=== PATIENT | male | born 1985 | race Hispanic/Latino ===

== ENCOUNTER 2019-08-06 20:37 | Emergency (ER) | payer BC ==
[2019-08-06 21:12] LABS: Absolute Lymphocytes (CBC) 2.6 K/uL (0.7-4.9); Basophils % 0.5 % (0-1.3); Lymphocytes % 27.3 % (15.3-44.8); MPV 7.9 fL (7.6-11.3); RBC Red Blood Cell Count 5.57 M/uL (4.33-5.43)
[2019-08-06 21:37] LABS: ALT/SGPT 57 U/L (12-78); AST/SGOT 30 U/L (15-37); Albumin 4.2 g/dL (3.4-5.0); Alkaline Phosphatase 72 U/L (45-117); BUN Blood Urea Nitrogen 22 mg/dL (7-18); Bicarbonate 26 mmol/L (21-32); Bilirubin Direct 0.1 mg/dL (0-0.2); Bilirubin Total 0.6 mg/dL (0.2-1.0); Glucose Level 105 mg/dL (74-106); Magnesium 1.9 mg/dL (1.8-2.4); Potassium 3.6 mmol/L (3.5-5.1); Sodium Level 141 mmol/L (136-145); Troponin (Emerg Dept Use Only) < 0.02 ng/mL (0.0-0.045)
--- NOTE | 2019-08-06 21:55 | EDPHYS ---
Physician Documentation [facility] Name: Teto Elizalde Jr Age: 33 yrs Sex: Male : 1985 Arrival Date: 08/06/2019 Time: 20:38 Bed 27 Private MD: ED Physician Stan Davis HPI: 08/06 20:50 This 33 yrs old Male presents to ER via Unassigned with complaints of Anxiety, steven Dehydration. 20:50 The patient presents with a history of heart racing. Context: The symptoms occur at steven rest. Onset: The symptoms/episode began/occurred just prior to arrival. Duration: The patient or guardian reports a single episode, that is still ongoing. Modifying factors: The symptoms are aggravated by anxiety, The symptoms are alleviated by remaining still, rest. took fat burner pill at 4 pm. Associated signs and symptoms: Pertinent positives: anxiety, lightheadedness, nausea. Severity of symptoms: At their worst the symptoms were mild in the emergency department the symptoms are unchanged. Historical: - Allergies: 20:55 No Known Allergies; iw - Home Meds: 20:55 None [Active]; iw - PMHx: 20:55 None; iw - Immunization history:: Adult Immunizations. - Coronavirus screen:: The patient has NOT traveled to [place], [place], or [place] in the past 14 days. The patient has NOT had contact with known/suspected case of Coronavirus?. - Family history:: not pertinent. - Social history:: Smoking status: Patient denies any tobacco usage or history of. - Ebola Screening: : Patient negative for fever greater than or equal to 101.5 degrees Fahrenheit, and additional compatible Ebola Virus Disease symptoms Patient denies exposure to infectious person Patient denies travel to an Ebola-affected area in the 21 days before illness onset No symptoms or risks identified at this time. ROS: 20:50 Constitutional: Negative for fever, chills, and weight loss, Eyes: Negative for injury, steven pain, redness, and discharge, ENT: Negative for injury, pain, and discharge, Neck: Negative for injury, pain, and swelling, Cardiovascular: Negative for chest pain, palpitations, and edema, Respiratory: Negative for shortness of breath, cough, wheezing, and pleuritic chest pain, Abdomen/GI: Negative for abdominal pain, nausea, vomiting, diarrhea, and constipation, Back: Negative for injury and pain, : Negative for injury, bleeding, discharge, and swelling, MS/Extremity: Negative for injury and deformity, Skin: Negative for injury, rash, and discoloration, Neuro: Negative for headache, weakness, numbness, tingling, and seizure, Allergy/Immunology: Negative for hives, rash, and allergies, Endocrine: Negative for neck swelling, polydipsia, polyuria, polyphagia, and marked weight changes, Hematologic/Lymphatic: Negative for swollen nodes, abnormal bleeding, and unusual bruising. 20:50 Psych: Positive for anxiety. Exam: 20:50 Constitutional: This is a well developed, well nourished patient who is awake, alert, steven and in no acute distress. Head/Face: Normocephalic, atraumatic. Eyes: Pupils equal round and reactive to light, extra-ocular motions intact. Lids and lashes normal. Conjunctiva and sclera are non-icteric and not injected. Cornea within normal limits. Periorbital areas with no swelling, redness, or edema. ENT: Nares patent. No nasal discharge, no septal abnormalities noted. Tympanic membranes are normal and external auditory canals are clear. Oropharynx with no redness, swelling, or masses, exudates, or evidence of obstruction, uvula midline. Mucous membranes moist. Neck: Trachea midline, no thyromegaly or masses palpated, and no cervical lymphadenopathy. Supple, full range of motion without nuchal rigidity, or vertebral point tenderness. No Meningismus. Chest/axilla: Normal chest wall appearance and motion. Nontender with no deformity. No lesions are appreciated. Cardiovascular: Regular rate and rhythm with a normal S1 and S2. No gallops, murmurs, or rubs. Normal PMI, no JVD. No pulse deficits. Respiratory: Lungs have equal breath sounds bilaterally, clear to auscultation and percussion. No rales, rhonchi or wheezes noted. No increased work of breathing, no retractions or nasal flaring. Abdomen/GI: Soft, non-tender, with normal bowel sounds. No distension or tympany. No guarding or rebound. No evidence of tenderness throughout. Back: No spinal tenderness. No costovertebral tenderness. Full range of motion. Male : Normal genitalia with no discharge or lesions. Skin: Warm, dry with normal turgor. Normal color with no rashes, no lesions, and no evidence of cellulitis. MS/ Extremity: Pulses equal, no cyanosis. Neurovascular intact. Full, normal range of motion. Neuro: Awake and alert, GCS 15, oriented to person, place, time, and situation. Cranial nerves II-XII grossly intact. Motor strength 5/5 in all extremities. Sensory grossly intact. Cerebellar exam normal. Normal gait. 20:50 Psych: Behavior/mood is anxious, Affect is calm, Oriented to person, place, time, Patient has no thoughts/intents to harm self or others. Judgement / Insight is normal. Vital Signs: 20:53 BP 126 / 82; Pulse 82; Resp 16; Temp 98.0; Pulse Ox 99% on R/A; iw 22:46 BP 122 / 78; Pulse 87; Resp 14; Temp 98.4; Pulse Ox 99% on R/A; Pain 0/10; ls4 MDM: 20:50 Data reviewed: vital signs, nurses notes, lab test result(s), EKG, radiologic studies, [facility] CT scan, plain films. 20:56 Patient medically screened. 08/06 20:47 Order name: Basic Metabolic Panel; Complete Time: 21:53 08/06 20:47 Order name: CBC with Diff; Complete Time: 21:53 08/06 20:47 Order name: LFT's; Complete Time: 21:53 08/06 20:47 Order name: Magnesium; Complete Time: 21:53 08/06 20:47 Order name: Troponin (emerg Dept Use Only); Complete Time: 21:53 08/06 20:47 Order name: UDS 08/06 20:47 Order name: XRAY Chest (1 view) 08/06 20:47 Order name: EKG; Complete Time: 20:48 08/06 20:47 Order name: Cardiac monitoring; Complete Time: 22:42 08/06 20:47 Order name: EKG - Nurse/Tech; Complete Time: 22:42 08/06 20:47 Order name: Asprin; Complete Time: 21:53 08/06 20:47 Order name: Tylenol Level; Complete Time: 21:53 08/06 20:47 Order name: Alcohol Level; Complete Time: 21:53 08/06 20:47 Order name: IV Saline Lock; Complete Time: 22:42 [facility] 08/06 20:47 Order name: Labs collected and sent; Complete Time: 22:42 [facility] 08/06 20:47 Order name: O2 Per Protocol; Complete Time: 22:42 [facility] 08/06 20:47 Order name: O2 Sat Monitoring; Complete Time: 22:42 [facility] 08/06 20:48 Order name: Urine Dipstick-Ancillary (obtain specimen); Complete Time: 22:15 [facility] Administered Medications: 20:48 Drug: NS 0.9% 1000 ml Route: IV; Rate: 1 bolus; Site: left antecubital; ls4 21:48 Follow up: IV Status: Completed infusion; IV Intake: 1000ml ls4 Disposition: 08/06/19 21:54 Discharged to Home. Impression: Anxiety disorder, unspecified, Palpitations. - Condition is Stable. - Discharge Instructions: Panic Attacks, Palpitations, Panic Attacks, [id number], Palpitations, [id number]. - Prescriptions for Benadryl 25 mg Oral Capsule - take 1 capsule by ORAL route every 6 hours As needed; 30 tablet. - Medication Reconciliation Form, Thank You Letter, Antibiotic Education, Prescription Opioid Use form. - Follow up: Private Physician; When: 2 - 3 days; Reason: Recheck today's complaints, Continuance of care, Re-evaluation by your physician. - Problem is new. - Symptoms have improved. Signatures: Dispatcher [employer] EDMS Stan Davis MD MD cha Williams, Irene, RN RN Milla Bustillos RN RN ls4 Corrections: (The following items were deleted from the chart) 22:41 21:54 08/06/2019 21:54 Discharged to Home. Impression: Anxiety disorder, unspecified; ls4 Palpitations. Condition is Stable. Discharge Instructions: Panic Attacks, Panic Attacks, [id number]. Prescriptions for Benadryl 25 mg Oral Capsule - take 1 capsule by ORAL route every 6 hours As needed; 30 tablet. and Forms are Medication Reconciliation Form, Thank You Letter, Antibiotic Education, Prescription Opioid Use. Follow up: Private Physician; When: 2 - 3 days; Reason: Recheck today's complaints, Continuance of care, Re-evaluation by your physician. Problem is new. Symptoms have improved. [facility]
--- NOTE | 2019-08-06 21:55 | ER ---
Nurse's Notes [facility] Name: Teto Elizalde Jr Age: 33 yrs Sex: Male : 1985 Arrival Date: 08/06/2019 Time: 20:38 Bed 27 Private MD: Diagnosis: Anxiety disorder, unspecified;Palpitations Presentation: 08/06 20:53 Presenting complaint: EMS states: pt was at work, started to feel shaky, anxious, has iw been taking hydroxycut pills for weigh loss and thinks it made him shaky, also has hx of anxiety. Transition of care: patient was not received from another setting of care. Onset of symptoms was August 06, 2019. Risk Assessment: Do you want to hurt yourself or someone else? Patient reports no desire to harm self or others. Initial Sepsis Screen: Does the patient meet any 2 criteria? No. Patient's initial sepsis screen is negative. Does the patient have a suspected source of infection? No. Patient's initial sepsis screen is negative. Care prior to arrival: Medication(s) given: Normal saline infusion, 500 mL, IV initiated. 18 GA, in the left antecubital area, Glucose check: 82. 20:53 Method Of Arrival: EMS: [facility] iw 20:53 Acuity: ADITYA 3 iw Triage Assessment: 21:00 General: Appears in no apparent distress. uncomfortable, Behavior is anxious. ls4 21:00 Pain: Denies pain. ls4 Historical: - Allergies: 20:55 No Known Allergies; iw - Home Meds: 20:55 None [Active]; iw - PMHx: 20:55 None; iw - Immunization history:: Adult Immunizations. - Coronavirus screen:: The patient has NOT traveled to [place], [place], or [place] in the past 14 days. The patient has NOT had contact with known/suspected case of Coronavirus?. - Family history:: not pertinent. - Social history:: Smoking status: Patient denies any tobacco usage or history of. - Ebola Screening: : Patient negative for fever greater than or equal to 101.5 degrees Fahrenheit, and additional compatible Ebola Virus Disease symptoms Patient denies exposure to infectious person Patient denies travel to an Ebola-affected area in the 21 days before illness onset No symptoms or risks identified at this time. Screenin:00 Abuse screen: Denies threats or abuse. Denies injuries from another. ls4 21:00 Nutritional screening: No deficits noted. Tuberculosis screening: No symptoms or risk ls4 factors identified. Fall Risk None identified. Assessment: 21:10 General: SEE TRIAGE ASSESSMENT . ls4 22:47 Reassessment: Patient appears in no apparent distress at this time. Patient and/or ls4 family updated on plan of care and expected duration. Pain level reassessed. Patient is alert, oriented x 3, equal unlabored respirations, skin warm/dry/pink. Patient states feeling better. Vital Signs: 20:53 BP 126 / 82; Pulse 82; Resp 16; Temp 98.0; Pulse Ox 99% on R/A; iw 22:46 BP 122 / 78; Pulse 87; Resp 14; Temp 98.4; Pulse Ox 99% on R/A; Pain 0/10; ls4 ED Course: 20:38 Patient arrived in ED. ds1 20:46 Stan Davis MD is Attending Physician. steven 20:54 Triage completed. iw 20:55 Arm band placed on. iw 21:00 Patient has correct armband on for positive identification. Placed in gown. Bed in low ls4 position. Call light in reach. Side rails up X2. court monitor on. Pulse ox on. NIBP on. 21:00 No provider procedures requiring assistance completed. Maintain EMS IV. Dressing ls4 intact. Good blood return noted. Site clean \T\ dry. Gauge \T\ site: 20 LAC. 21:01 XRAY Chest (1 view) In Process Unspecified. EDMS 21:58 Milla Bustillos, RN is Primary Nurse. ls4 22:46 IV discontinued, intact, bleeding controlled, No redness/swelling at site. Pressure ls4 dressing applied. Administered Medications: 20:48 Drug: NS 0.9% 1000 ml Route: IV; Rate: 1 bolus; Site: left antecubital; ls4 21:48 Follow up: IV Status: Completed infusion; IV Intake: 1000ml ls4 Intake: 21:48 IV: 1000ml; Total: 1000ml. ls4 Outcome: 21:54 Discharge ordered by . steven 22:41 Patient left the ED. ls4 22:46 Discharged to home ambulatory, with family. ls4 22:46 Condition: stable 22:46 Discharge instructions given to patient, Instructed on discharge instructions, follow up and referral plans. Demonstrated understanding of instructions, follow-up care, medications. Signatures: Dispatcher [employer] Stan Mesa MD MD cha Sanford, Demi ds1 Sisi Sage RN RN Milla Youssef RN RN ls4
[2019-08-06 22:11] LABS: Barbiturates NEGATIVE (NEGATIVE); Benzodiazepines NEGATIVE (NEGATIVE); Cocaine NEGATIVE (NEGATIVE); METHAMPHETAM NEGATIVE (NEGATIVE); Methadone NEGATIVE (NEGATIVE); Opiates NEGATIVE (NEGATIVE); Phencyclidine NEGATIVE (NEGATIVE); THC Cannibis NEGATIVE (NEGATIVE)
[2019-08-06] MEDS ORDERED: NA CHLORIDE 0.9% 1,000 ML ONE (22:16)
[2019-08-06 22:55] VITALS: BP 126/82; TEMP 98; O2SAT 99
--- NOTE | 2019-08-07 11:20 | RAD REPORT ---
EXAM DESCRIPTION: RAD - Chest Single View - 08/06/2019 9:01 pm CLINICAL HISTORY: COUGH Chest pain. COMPARISON: No comparisons FINDINGS: Portable technique limits examination quality. The lungs are grossly clear. The heart is normal in size. No displaced fractures. IMPRESSION: No acute intrathoracic process suspected.
--- NOTE | 2019-08-08 12:01 | EKG ---
Test Date: 2019-08-06 Test Time: 20:43:00 Load Out Worker: BRITTANY MEASUREMENT RESULTS: Intervals: Rate: 83 TX: 182 QRSD: 84 QT: 362 QTc: 425 Minetto: P: 70 TX: 182 QRS: 81 T: 49 INTERPRETIVE STATEMENTS: Normal sinus rhythm Normal ECG No previous ECG available for comparison Electronically Signed On 08-08-19 12:00:38 CASTING ASSOCIATE by Zach Vera
== END 2019-08-06 22:41 | disposition home or self-care (01) ==
LOC: ER 20:37
DX: F41.9 Anxiety disorder, unspecified (principal); R00.2 Palpitations
CPT/HCPCS: 93005; 85025; 80048; 36415; 80320; 83735; 80329 ×2; 80076; 80307 ×8; 84484; 71045; 96360; 99284; J7030